=== PATIENT | female | born 1960 | race African-American/Black ===

== ENCOUNTER 2016-05-20 12:48 | Inpatient (IN) | payer MEDICAID ==
[~2016-05-20] VITALS: Ht 165.1 cm; Wt 73.1 kg
[~2016-05-20 12:48] MED LIST: CLON0.1T PO; RISP3 PO
[2016-05-20] MEDS ORDERED: ASPI-556 PO (12:58)
[2016-05-20 13:15] LABS: BASOPHILS # (AUTO) 0.14 K/uL (0.00-0.20); BASOPHILS % (AUTO) 1.8 % (0.0-2.0); EOSINOPHILS # (AUTO) 0.13 K/uL (0.00-0.70); EOSINOPHILS % (AUTO) 1.71 % (1.0-6.0); HEMATOCRIT 43.7 % (36-46); HEMOGLOBIN 14.4 g/dL (12.0-16.0); LYMPHOCYTES # (AUTO) 3.1 K/uL (1.0-4.8); LYMPHOCYTES % (AUTO) 40.6 % (22.0-44.0); MEAN CORPUSCULAR HEMOGLOBIN 27.9 pg (26.0-34.0); MEAN CORPUSCULAR VOLUME 85 fL (80-100); MONOCYTES # (AUTO) 0.6 K/uL (0.1-1.0); NEUTROPHILS # (AUTO) 3.7 K/uL (1.8-7.7); NEUTROPHILS % (AUTO) 47.9 % (40.0-70.0); PLATELET COUNT (AUTO) 277 K/uL (150-450); RED BLOOD CELL COUNT(AUTO) 5.17 MIL/uL (4.00-5.20); RED CELL DISTRIBUTION WIDTH 12.7 % (11.5-14.5); WHITE BLOOD COUNT (AUTO) 7.6 K/uL (4.5-11.0)
[2016-05-20 13:28] LABS: ANION GAP 6 mmol/L (8-16); CALCIUM, TOTAL 9.2 mg/dL (8.8-10.5); CARBON DIOXIDE 30 mmol/L (22-29); CHLORIDE 99 mmol/L (98-107); CREATININE 1.18 mg/dL (0.60-1.30); GLOMERULAR FILTR. RATE CALC 58 mL/min (>60); POTASSIUM 3.6 mmol/L (3.5-5.1); SODIUM SERUM 135 mmol/L (136-145); UREA NITROGEN, BLOOD 13 mg/dL (7-18)
[2016-05-20] MEDS ORDERED: HALOPERIDOL LACTATE 5 MG/ML VIAL IM ONE (13:30)
[2016-05-20] MEDS ORDERED: LORazepam 2 MG/ML VIAL IM ONE (13:30)
[2016-05-20] MEDS ORDERED: DiphenhydrAMINE HCL 50 MG/ML VIAL IM ONE (13:30)
[2016-05-20 13:35] LABS: ALANINE AMINOTRANSFERASE 34 U/L (12-78); ALBUMIN 4.2 g/dL (3.4-5.0); ASPARTATE AMINOTRANSFERASE 26 U/L (15-37); BILIRUBIN,TOTAL 0.3 mg/dL (0.1-1.0); TOTAL PROTEIN, SERUM 8.6 g/dL (6.4-8.2)
[2016-05-20] MEDS ORDERED: ZOLPIDEM TARTRATE 10 MG TABLET PO PRN (15:30)
[2016-05-20] MEDS: RisperiDONE 3 MG TABLET PO SCH (17:00)
[2016-05-20 17:17] VITALS: BP 136/80
[2016-05-20] MEDS ORDERED: INFLUENZA VIRUS VACCINE QVS 2016-17 (3YR+)/PF 60 MCG/0.5 ML SYRINGE IM ONE (18:15)
[2016-05-21 07:09] VITALS: BP 121/72
[2016-05-21] MEDS: CloNIDine HCL 0.1 MG TABLET PO SCH ×2 (08:24→16:33)
[2016-05-21] MEDS: RisperiDONE 3 MG TABLET PO SCH ×2 (08:24→16:33)
[2016-05-21] MEDS: LORazepam 2 MG TABLET PO PRN (08:25)
[2016-05-21 09:56] VITALS: BP 130/91
[2016-05-21] MEDS: HALOPERIDOL 5 MG TABLET PO PRN (16:33)
[2016-05-21 16:47] VITALS: BP 121/63
[2016-05-22 08:04] VITALS: BP 139/75
[2016-05-22] MEDS: RisperiDONE 3 MG TABLET PO SCH ×2 (08:21→16:23)
[2016-05-22] MEDS: CloNIDine HCL 0.1 MG TABLET PO SCH ×2 (08:21→16:23)
[2016-05-22] MEDS: LORazepam 2 MG TABLET PO PRN (09:58)
[2016-05-22 16:00] VITALS: BP 153/87
[2016-05-23 06:37] VITALS: BP 140/88
[2016-05-23] MEDS: RisperiDONE 3 MG TABLET PO SCH ×3 (08:04→16:24)
[2016-05-23] MEDS: CloNIDine HCL 0.1 MG TABLET PO SCH ×2 (08:04→16:23)
[2016-05-23 13:08] VITALS: BP 127/66
[2016-05-23 16:05] VITALS: BP 145/102
[2016-05-23] MEDS: LORazepam 2 MG TABLET PO PRN (16:22)
[2016-05-24 05:37] VITALS: BP 140/86
[2016-05-24] MEDS: CloNIDine HCL 0.1 MG TABLET PO SCH ×2 (08:45→16:39)
[2016-05-24] MEDS: RisperiDONE 3 MG TABLET PO SCH ×2 (08:48→16:42)
[2016-05-24 08:58] VITALS: BP 144/80
[2016-05-24] MEDS: LORazepam 2 MG TABLET PO PRN ×2 (11:43→16:39)
[2016-05-24] MEDS ORDERED: MAG HYDROX/AL HYDROX/SIMETH ES 30 ML SUSPENSION UDCUP PO PRN (14:30)
[2016-05-24] MEDS ORDERED: ACETAMINOPHEN 325 MG TABLET PO PRN (14:30)
[2016-05-24 16:13] VITALS: BP 154/74
[2016-05-24 18:58] VITALS: BP 113/68
[2016-05-25 06:41] VITALS: BP 140/80
[2016-05-25 08:31] VITALS: BP 128/66
[2016-05-25] MEDS: PANTOPRAZOLE SODIUM 40 MG DR TABLET PO SCH (08:56)
[2016-05-25] MEDS: CloNIDine HCL 0.1 MG TABLET PO SCH ×2 (08:56→16:18)
[2016-05-25] MEDS: RisperiDONE 3 MG TABLET PO SCH ×2 (08:56→16:18)
[2016-05-25] MEDS: HALOPERIDOL 5 MG TABLET PO PRN (13:50)
[2016-05-25] MEDS: LORazepam 2 MG TABLET PO PRN (13:50)
[2016-05-25 16:11] VITALS: BP 180/82
[2016-05-26 05:44] VITALS: BP 145/84
[2016-05-26] MEDS: PANTOPRAZOLE SODIUM 40 MG DR TABLET PO SCH (08:18)
[2016-05-26] MEDS: CloNIDine HCL 0.1 MG TABLET PO SCH (08:18)
[2016-05-26] MEDS: RisperiDONE 3 MG TABLET PO SCH (08:18)
[2016-05-26 08:25] VITALS: BP 135/77
[2016-05-26] MEDS: LORazepam 2 MG TABLET PO PRN (08:33)
[2016-05-26] MEDS ORDERED: PANT40TA25 PO (10:41)
== END 2016-05-26 15:02 | disposition home or self-care (01) | DRG 753 ==
LOC: EMS 12:50 → B3A 16:06
PROVIDERS: ADMIT Psychiatry & Neurology Psychiatry; ATTEND Psychiatry & Neurology Child & Adolescent Psychiatry
DX: F31.9 Bipolar disorder, unspecified (principal); Z91.14 Patient's other noncompliance with medication regimen; I10 Essential (primary) hypertension; F25.0 Schizoaffective disorder, bipolar type; F22 Delusional disorders; I25.10 Atherosclerotic heart disease of native coronary artery without angina pectoris; K21.9 Gastro-esophageal reflux disease without esophagitis; F15.90 Other stimulant use, unspecified, uncomplicated; F17.210 Nicotine dependence, cigarettes, uncomplicated; Z59.0 Homelessness; Z95.5 Presence of coronary angioplasty implant and graft; Z88.5 Allergy status to narcotic agent; Z79.82 Long term (current) use of aspirin; Z79.899 Other long term (current) drug therapy
CPT/HCPCS: 87081; 96372; 99285; A0429; G0480; J1200; J1630; J2060

== ENCOUNTER 2016-06-27 21:50 | Emergency (ER) | payer MEDICAID ==
[~2016-06-27] VITALS: Ht 165.1 cm; Wt 72.7 kg
[~2016-06-27 21:50] MED LIST changes: +PANT40TA25 PO
[2016-06-27] MEDS ORDERED: HALOPERIDOL LACTATE 5 MG/ML VIAL IM ONE (22:30)
[2016-06-27] MEDS ORDERED: DiphenhydrAMINE HCL 50 MG/ML VIAL IM ONE (22:30)
[2016-06-27] MEDS ORDERED: LORazepam 2 MG/ML VIAL IM ONE (22:30)
[2016-06-27 22:34] LABS: ANION GAP 11 mmol/L (8-16); CALCIUM, TOTAL 9.1 mg/dL (8.8-10.5); CARBON DIOXIDE 28 mmol/L (22-29); CHLORIDE 100 mmol/L (98-107); CREATININE 1.34 mg/dL (0.60-1.30); GLOMERULAR FILTR. RATE CALC 50 mL/min (>60); SODIUM SERUM 139 mmol/L (136-145); UREA NITROGEN, BLOOD 17 mg/dL (7-18)
[2016-06-27 22:35] LABS: BASOPHILS # (AUTO) 0.02 K/uL (0.00-0.20); BASOPHILS % (AUTO) 0.3 % (0.0-2.0); EOSINOPHILS # (AUTO) 0.04 K/uL (0.00-0.70); EOSINOPHILS % (AUTO) 0.56 % (1.0-6.0); HEMOGLOBIN 12.6 g/dL (12.0-16.0); LYMPHOCYTES # (AUTO) 2.5 K/uL (1.0-4.8); LYMPHOCYTES % (AUTO) 38.4 % (22.0-44.0); MEAN CORPUSCULAR HEMOGLOBIN 27.5 pg (26.0-34.0); MEAN CORPUSCULAR HGB CONC 33.1 G/dL (31.0-37.0); MEAN CORPUSCULAR VOLUME 83 fL (80-100); MONOCYTES # (AUTO) 0.6 K/uL (0.1-1.0); MONOCYTES % (AUTO) 9.7 % (2.0-9.0); NEUTROPHILS # (AUTO) 3.3 K/uL (1.8-7.7); PLATELET COUNT (AUTO) 256 K/uL (150-450); RED BLOOD CELL COUNT(AUTO) 4.58 MIL/uL (4.00-5.20); RED CELL DISTRIBUTION WIDTH 12.8 % (11.5-14.5); WHITE BLOOD COUNT (AUTO) 6.6 K/uL (4.5-11.0)
[2016-06-27 22:39] LABS: ALANINE AMINOTRANSFERASE 39 U/L (12-78); ALBUMIN 3.5 g/dL (3.4-5.0); ASPARTATE AMINOTRANSFERASE 39 U/L (15-37); BILIRUBIN,TOTAL 0.6 mg/dL (0.1-1.0); TOTAL PROTEIN, SERUM 7.5 g/dL (6.4-8.2)
[2016-06-28] MEDS ORDERED: POTASSIUM CHLORIDE 20 MEQ ER TABLET PO ONE (01:30)
[2016-06-28 05:51] VITALS: BP 128/78
== END 2016-06-28 05:54 | disposition home or self-care (01) ==
LOC: EMS 21:52 → EEVIPCON 21:52 → EMS 06-28 05:54
DX: F20.0 Paranoid schizophrenia (principal); F15.10 Other stimulant abuse, uncomplicated; I25.10 Atherosclerotic heart disease of native coronary artery without angina pectoris; K21.9 Gastro-esophageal reflux disease without esophagitis; I10 Essential (primary) hypertension; F17.210 Nicotine dependence, cigarettes, uncomplicated; Z88.5 Allergy status to narcotic agent
CPT/HCPCS: 36415; 80053; 80307; 85025; 96372; 99285; G0480; J1200; J1630; J2060; 99284

== ENCOUNTER 2017-10-15 07:34 | Inpatient (IN) | payer MEDICAID ==
[~2017-10-15] VITALS: Ht 162.6 cm; Wt 73.9 kg
[2017-10-15] MEDS ORDERED: BUSP5TAB20 PO (09:10)
[2017-10-15] MEDS ORDERED: PROZ10 PO (09:10)
[2017-10-15 09:50] LABS: BASOPHILS % (AUTO) 1.3 % (0.0-2.0); EOSINOPHILS % (AUTO) 1.1 % (1.0-6.0); HEMATOCRIT 39.4 % (36-46); HEMOGLOBIN 13.4 g/dL (12.0-16.0); LYMPHOCYTES # (AUTO) 1.8 K/uL (1.0-4.8); LYMPHOCYTES % (AUTO) 34.7 % (22.0-44.0); MEAN CORPUSCULAR HEMOGLOBIN 28.4 pg (26.0-34.0); MEAN CORPUSCULAR VOLUME 84 fL (80-100); MONOCYTES # (AUTO) 0.4 K/uL (0.1-1.0); MONOCYTES % (AUTO) 7.1 % (2.0-9.0); NEUTROPHILS % (AUTO) 55.8 % (40.0-70.0); PLATELET COUNT (AUTO) 223 K/uL (150-450); RED BLOOD CELL COUNT(AUTO) 4.71 MIL/uL (4.00-5.20); RED CELL DISTRIBUTION WIDTH 13.9 % (11.5-14.5)
[2017-10-15 09:51] LABS: AMPHET/METH SCREEN,URINE POSITIVE (NEGATIVE); BARBITURATE SCREEN, URINE NEGATIVE (NEGATIVE); BENZODIAZEPINES SCREEN,URINE NEGATIVE (NEGATIVE); CANNABINOID SCREEN,URINE NEGATIVE (NEGATIVE); COCAINE SCREEN,URINE NEGATIVE (NEGATIVE); METHADONE SCREEN, URINE NEGATIVE (NEGATIVE); OPIATE SCREEN,URINE NEGATIVE (NEGATIVE)
[2017-10-15 09:56] LABS: PHENCYCLIDINE SCREEN,URINE NEGATIVE (NEGATIVE)
[2017-10-15 10:14] LABS: ALANINE AMINOTRANSFERASE 58 U/L (12-78); ALKALINE PHOSPHATASE 81 U/L (46-116); ANION GAP 10 mmol/L (8-16); ASPARTATE AMINOTRANSFERASE 73 U/L (15-37); BILIRUBIN,TOTAL 0.7 mg/dL (0.1-1.0); CALCIUM, TOTAL 8.5 mg/dL (8.8-10.5); CARBON DIOXIDE 27 mmol/L (22-29); CHLORIDE 98 mmol/L (98-107); CREATININE 1.31 mg/dL (0.60-1.30); GLOMERULAR FILTR. RATE CALC 51 mL/min (>60); GLUCOSE,RANDOM 90 mg/dL (70-110); SODIUM SERUM 135 mmol/L (136-145); UREA NITROGEN, BLOOD 21 mg/dL (7-18)
[2017-10-15 10:17] LABS: POTASSIUM 2.8 mmol/L (3.5-5.1)
[2017-10-15] MEDS ORDERED: HALOPERIDOL 5 MG TABLET PO PRN (10:30)
[2017-10-15] MEDS ORDERED: ZOLPIDEM TARTRATE 10 MG TABLET PO PRN (10:30)
[2017-10-15] MEDS ORDERED: POTASSIUM CHLORIDE 20 MEQ ER TABLET PO ONE ×2 (11:15→20:45)
[2017-10-15] MEDS: LORazepam 2 MG TABLET PO PRN (20:09)
[2017-10-15 20:15] VITALS: BP 147/81
[2017-10-15] MEDS ORDERED: IBUPROFEN 400 MG TABLET PO PRN (20:45)
[2017-10-15] MEDS ORDERED: ACETAMINOPHEN 325 MG TABLET PO PRN (20:45)
[2017-10-15] MEDS ORDERED: -PHARMACY VACCINE NOTE- MISC ONE (20:45)
[2017-10-15 20:54] VITALS: BP 142/88
[2017-10-15] MEDS ORDERED: MAG HYDROX/AL HYDROX/SIMETH 30 ML SUSP UDCUP PO PRN (21:00)
[2017-10-16 07:03] VITALS: BP 149/80
[2017-10-16] MEDS: LORazepam 2 MG TABLET PO PRN (08:09)
[2017-10-16 08:23] VITALS: BP 143/96
[2017-10-16] MEDS ORDERED: NICOTINE 7 MG/24 HOUR PATCH TD SCH (09:00)
[2017-10-16 09:33] LABS: FREE T4 (FREE THYROXINE) 1.04 ng/dL (0.76-1.46); POTASSIUM 3.2 mmol/L (3.5-5.1); THYROID STIMULATING HORMONE 0.7 uIU/mL (0.36-3.74)
[2017-10-16] MEDS: BusPIRone HCL 10 MG TABLET PO SCH ×2 (10:36→16:48)
[2017-10-16] MEDS: CloNIDine HCL 0.1 MG TABLET PO SCH ×2 (10:36→16:48)
[2017-10-16] MEDS ORDERED: DOCUSATE SODIUM 100 MG CAPSULE PO PRN (10:45)
[2017-10-16] MEDS ORDERED: ALBUTEROL SULFATE HFA 90 MCG/PUFF 8 GM INHALER IH PRN (10:45)
[2017-10-16] MEDS ORDERED: IBUPROFEN 400 MG TABLET PO PRN (10:45)
[2017-10-16] MEDS ORDERED: ACETAMINOPHEN 325 MG TABLET PO PRN (10:45)
[2017-10-16] MEDS ORDERED: MAGNESIUM HYDROXIDE SUSPENSION 30 ML UDCUP PO PRN (10:45)
[2017-10-16] MEDS ORDERED: MAG HYDROX/AL HYDROX/SIMETH ES 30 ML SUSPENSION UDCUP PO PRN (10:45)
[2017-10-16] MEDS ORDERED: ONDANSETRON HCL 4 MG TABLET PO PRN (10:45)
[2017-10-16] MEDS ORDERED: PETROLATUM,WHITE 71 GM JELLY TP PRN (10:45)
[2017-10-16] MEDS ORDERED: POTASSIUM CHLORIDE 20 MEQ ER TABLET PO ONE (10:45)
[2017-10-16 11:20] VITALS: BP 136/88
[2017-10-16 12:20] VITALS: BP 138/90
[2017-10-16 16:30] VITALS: BP 130/79
[2017-10-16] MEDS: OLANZapine 5 MG TABLET PO SCH (20:33)
[2017-10-17 06:26] VITALS: BP 142/75
[2017-10-17] MEDS: NICOTINE 14 MG/24 HOUR PATCH TD SCH (09:00)
[2017-10-17 09:16] VITALS: BP 152/81
[2017-10-17] MEDS: CloNIDine HCL 0.1 MG TABLET PO SCH ×2 (09:16→17:10)
[2017-10-17] MEDS: BusPIRone HCL 10 MG TABLET PO SCH ×2 (09:16→17:10)
[2017-10-17 13:39] VITALS: BP 144/97
[2017-10-17] MEDS: LORazepam 2 MG TABLET PO PRN (13:42)
[2017-10-17 15:07] VITALS: BP 157/91
[2017-10-17 17:14] VITALS: BP 162/78
[2017-10-17] MEDS: OLANZapine 5 MG TABLET PO SCH (20:51)
[2017-10-18 06:10] VITALS: BP 148/88
[2017-10-18] MEDS: BusPIRone HCL 10 MG TABLET PO SCH ×2 (08:39→16:24)
[2017-10-18] MEDS: CloNIDine HCL 0.1 MG TABLET PO SCH ×2 (08:39→16:24)
[2017-10-18 08:41] VITALS: BP 140/73
[2017-10-18] MEDS: NICOTINE 14 MG/24 HOUR PATCH TD SCH (08:42)
[2017-10-18] MEDS ORDERED: AmLODIPine BESYLATE 2.5 MG TABLET PO SCH (09:00)
[2017-10-18] MEDS: LORazepam 2 MG TABLET PO PRN (12:45)
[2017-10-18 16:22] VITALS: BP 134/85
[2017-10-18] MEDS: OLANZapine 5 MG TABLET PO SCH (19:57)
[2017-10-19 07:11] VITALS: BP 162/89
[2017-10-19 08:35] VITALS: BP 151/95
[2017-10-19] MEDS: CloNIDine HCL 0.1 MG TABLET PO SCH (08:47)
[2017-10-19] MEDS: BusPIRone HCL 10 MG TABLET PO SCH (08:48)
[2017-10-19] MEDS: NICOTINE 14 MG/24 HOUR PATCH TD SCH (08:48)
[2017-10-19] MEDS ORDERED: AmLODIPine BESYLATE 5 MG TABLET PO SCH (09:00)
[2017-10-19 10:23] VITALS: BP 140/78
[2017-10-19] MEDS ORDERED: AMLO5TAB66 PO (12:53)
[2017-10-19] MEDS ORDERED: OLAN5TAB27 PO (12:53)
== END 2017-10-19 13:30 | disposition home or self-care (01) | DRG 750 ==
LOC: EMS 07:35 → B3A 18:49
PROVIDERS: ADMIT Psychiatry & Neurology Psychiatry; ATTEND Psychiatry & Neurology Psychiatry
DX: F25.9 Schizoaffective disorder, unspecified (principal); E87.1 Hypo-osmolality and hyponatremia; R45.851 Suicidal ideations; I10 Essential (primary) hypertension; E87.6 Hypokalemia; F10.10 Alcohol abuse, uncomplicated; F15.10 Other stimulant abuse, uncomplicated; F41.9 Anxiety disorder, unspecified; I25.10 Atherosclerotic heart disease of native coronary artery without angina pectoris; F17.210 Nicotine dependence, cigarettes, uncomplicated; F32.9 Major depressive disorder, single episode, unspecified; J44.9 Chronic obstructive pulmonary disease, unspecified; K21.9 Gastro-esophageal reflux disease without esophagitis; Z79.899 Other long term (current) drug therapy; Z91.14 Patient's other noncompliance with medication regimen; Z95.5 Presence of coronary angioplasty implant and graft; Z88.5 Allergy status to narcotic agent; Z71.51 Drug abuse counseling and surveillance of drug abuser; Z71.41 Alcohol abuse counseling and surveillance of alcoholic; Z71.6 Tobacco abuse counseling
CPT/HCPCS: 83036; 84132; 84439; 84443; 99285; G0480